=== PATIENT | female | born 1995 | race African-American/Black ===

== ENCOUNTER 2019-03-02 08:17 | Emergency (ER) | payer OTHER ==
[~2019-03-02] VITALS: Ht 167.6 cm; Wt 99.6 kg
[~2019-03-02 08:17] MED LIST: CIPR500T4 PO; METR500T PO
[2019-03-02 08:21] VITALS: Ht 167.6 cm; Wt 99.6 kg
[2019-03-02] MEDS ORDERED: ONDANSETRON 4 MG INJ IV STA (08:48)
[2019-03-02] MEDS ORDERED: morphine 2 MG INJ IV STA ×2 (08:48→10:43)
[2019-03-02] MEDS ORDERED: SOD CHLORIDE 0.9% 1,000 ML IV ONE (09:00)
[2019-03-02] MEDS ORDERED: LOPERAMIDE 2 MG CAP PO ONE (09:00)
[2019-03-02] MEDS ORDERED: CEFTRIAXONE 1 GM/50 ML (PMX) 50 ML IVPB ONE (11:00)
[2019-03-02 11:54] VITALS: BP 102/53; PULSE 91; RESP 18
== END 2019-03-02 11:55 | disposition home or self-care (01) ==
LOC: FTE 08:17
DX: A09 Infectious gastroenteritis and colitis, unspecified (principal)
CPT/HCPCS: 74176; 80048; 81025; 82270; 85025; 96361; 96365; 96375; 96376; 99285; J0696; J2270; J2405; J7030